=== PATIENT | male | born 1990 | race Caucasian/White ===

== ENCOUNTER 2018-11-13 19:58 | Outpatient (REF) | payer MEDICARE, MEDICAID, SELFPAY ==
[2018-11-13 22:41] LABS: Abs Immature Grans 0.01 k/cumm (0.0-0.09); Absolute Basophil Count 0.02 k/cumm (0.0-0.2); Absolute Eosinophil Count 0.41 k/cumm (0.0-0.7); Absolute Lymphocyte Count 1.53 k/cumm (1.2-3.4); Absolute Monocyte Count 0.44 k/cumm (0.11-0.7); Absolute Neutrophil Count 2.87 k/cumm (1.2-6.7); Basophils % 0.4; Eosinophils % 7.8; HCT 41.8 % (40.0-50.0); HGB 14.5 g/dL (13.5-17.5); Immature Grans % 0.2; Mean Corp. HGB Concentration 34.7 g/dL (32.0-36.0); Mean Corpuscular Hemoglobin 31.6 pg (27.0-33.0); Mean Corpuscular Volume 91.1 fL (80-95); Mean Platelet Volume 9.8 fL (8.0-11.0); Monocytes % 8.3; Neutrophils % 54.3; Platelet Count 193 x1000/uL (130-400); RBC 4.59 m/cumm (4.50-6.00); RBC Distribution Width 12.7 % (11.8-14.1); White Blood Cell Count 5.28 k/cumm (4.4-10.8)
[2018-11-13 23:05] LABS: Anion Gap 9.6 mmol/L (3-11); BUN 16 mg/dL (7-18); CO2 26.4 mmol/L (21.0-32.0); CREATININE 0.79 mg/dL (0.70-1.30); Calcium 9.3 mg/dL (8.5-10.1); Chloride 105 mmol/L (98-107); Glucose 91 mg/dL (70-100); Sodium 141 mmol/L (136-145); TSH (W/Ref FT4) 1.34 uIU/mL (0.358-3.74)
== END 2018-11-13 20:18 ==
LOC: NCHCN 19:58
PROVIDERS: PCP Family Medicine; Visit Provider Nurse Practitioner Family
DX: I49.9 Cardiac arrhythmia, unspecified (principal); R55 Syncope and collapse
CPT/HCPCS: 80048; 84443; 85025

== ENCOUNTER 2018-12-26 01:39 | Outpatient (CLI) | payer MEDICARE, MEDICAID, SELFPAY ==
--- NOTE | 2018-12-31 07:39 | HOLTER_ITS ---
HOLTER MONITOR DATE OF DICTATION December 30, 2018 48-hour study Baseline rhythm sinus. No supraventricular ectopy. Rare single PVC. No VT. Nocturnal heart rates as low as 25-30 BPM, sinus bradycardia. 1 pause is noted, 2.5 second duration 0349 hours, asymptomatic. SYMPTOMS No symptoms. Average heart rate 74 beats per minute. Hung Gatica M.D. GEORGE/evelyne T - 12/31/18
== END 2018-12-26 01:59 ==
PROVIDERS: PCP Family Medicine; Visit Provider Family Medicine
DX: R55 Syncope and collapse (principal); I49.3 Ventricular premature depolarization; R00.1 Bradycardia, unspecified
CPT/HCPCS: 93225

== ENCOUNTER 2018-12-30 12:00 | Outpatient (CLI) | payer MEDICARE, MEDICAID, SELFPAY | END 2018-12-30 12:20 | PROVIDERS: PCP Nurse Practitioner Family; Visit Provider Family Medicine | DX: R55 Syncope and collapse (principal); I49.3 Ventricular premature depolarization; R00.1 Bradycardia, unspecified | CPT/HCPCS: 93227; 93226 ==

== ENCOUNTER 2018-12-30 18:31 | Outpatient (CLI) | payer MEDICARE, MEDICAID, SELFPAY | END 2018-12-30 18:51 | PROVIDERS: PCP Nurse Practitioner Family; Referring Provider Family Medicine; Visit Provider Internal Medicine Interventional Cardiology | DX: R69 Illness, unspecified (principal) ==

== ENCOUNTER 2020-11-10 21:49 | Emergency (ER) | payer MEDICARE, MEDICAID, SELFPAY ==
[2020-11-10 21:53] VITALS: BP 135/82; PULSE 97; RESP 14; TEMP 36.7; O2SAT 99
--- NOTE | 2020-11-10 22:17 | ED.GENADUL_ITS ---
Discharge Plan Disposition Patient Disposition: HOME Condition: Improving Discharge Details Clinical Impression: Angioedema Primary Care Provider: Vincent Rutherford ED Provider: Paulina Oneil Home Meds and New Rx's Prescriptions: Continued acetaminophen [Tylenol] 325 MG tablet 650 mg PO Q6H PRN RF: 0 tramadol [Ultram] 50 MG tablet 50 mg PO Q6H PRN Qty: 12 RF: 0 ibuprofen 800 MG tablet 800 mg PO TID Qty: 30 RF: 1 Discharge Instructions Instructions: Angioedema (ED) Additional Instructions: Exam is most consistent with angioedema. As we discussed, this could be a reaction. Please take the steroids as prescribed. You are given a dose for this evening. The remaining prescription is at [facility] per your request. Please follow-up with your primary care this week for reevaluation. If you develop increased swelling, difficulty swallowing, difficulty breathing, rash or any other new/worsening symptoms please seek care urgently once again Referrals: Vincent Rutherford, [employer] [Primary Care Provider] - Discharge Data Discharge Date/Time-TO BE ENTERED AT DEPARTURE: 11/11/20 00:00 Medical Decision Making Patient is a 30-year-old male presented with chief complaint of lower lip swelling. He states that he awoke like this this morning. No change in the swelling throughout the course the day. No difficulty swallowing, dyspnea or other difficulty breathing. He denies any fevers or chills. Patient is not on any medications. Denies taking any xuxu-sex-[id number] medications. Denies any illicit drug use. No alcohol. States that he had pizza last night for dinner and was not anything unusual. No family history of angioedema. No dental pain. No rash. States that he was able to complete his day at work prior to arrival here. Has not taken anything for the swelling. On exam, patient is resting comfortably, he appears nontoxic. He does appear slightly anxious. He has notable swelling to the lower lip with associated skin irritation appears to be primarily cracks in the skin. No surrounding erythema, warmth, drainage. No swelling under the tongue. No lymphadenopathy. No trismus. Handling secretions well, no stridor or wheezing. Uvula is midline, no tonsillar swelling. Patient does have acute dental caries but no evidence to suggest an acute infection. His exam is most consistent with angioedema. He does not appear to having any evidence of anaphylaxis. No evidence of to suggest an infection or abscess. We will treat the patient with steroids and antihistamine. Discussed plan is in agreement. Patient was reassessed multiple times. He reports that the swelling has been going down. He continues to show no evidence of respiratory involvement or progression of symptoms. Patient feels that he is ready for discharge at this time and I do agree with assessment. Been kept here over an hour since the receiving steroids. Is been over 12 hours since onset of symptoms initially. Patient will continue on steroids. Advised antihistamines to help with symptomatic management. Return precautions were discussed. I encourage close follow-up with primary care. All of his questions concerns were addressed and he is in agreement with this plan. HPI General Mode of arrival: ambulatory . Date/Time Provider Initiated Documentation: 11/10/20 22:08 . Limitations to Documentation: no limitations . Information obtained by: patient and RN notes reviewed . History of Present Illness 30 year old M presents to the emergency department with the chief complaint of swelling lower lip, described as moderate, with intensity rated at 5. Quality is described as aching, and is localized to the mouth. Patient reports no radiation. Patient started experiencing this hour(s) (noted when he woke up this morning) and it has been constant. No relieving factors improve symptom(s), No exacerbating factors reported . Patient notes no other symptoms.. Patient did receive the following treatments prior to arrival, none Related Data Home Medications Medication Instructions Recorded Confirmed acetaminophen [Tylenol] 650 mg PO Q6H PRN tab-cap 10/16/17 11/10/20 tramadol [Ultram] 50 mg PO Q6H PRN #12 tab-cap 11/20/17 11/10/20 ibuprofen 800 mg PO TID #30 tab-cap 12/04/17 11/10/20 Previous Rx's Medication Instructions Recorded tramadol [Ultram] 50 mg PO Q6H PRN #12 tab-cap 11/20/17 ibuprofen 800 mg PO TID #30 tab-cap 12/04/17 Allergies Allergy/AdvReac Type Severity Reaction Status Date / Time erythromycin ethylsuccinate Allergy Unverified 11/10/20 21:57 [From Pediazole] sulfisoxazole acetyl Allergy Unverified 11/10/20 21:57 [From Pediazole] General Stated Complaint: Allergic KATHERINE: 3 Review of Systems Constitutional Constitutional: Reports as per HPI, Denies chills, Denies fatigue, Denies fever(s), Denies headache(s), Denies poor appetite and Denies weakness Eyes Eyes: Reports as per HPI, Denies eye discharge and Denies irritation ENT Ears, Nose, Mouth, and Throat: Reports as per HPI, Denies headache(s), Denies hoarseness, Reports lip swelling, Denies mouth lesions, Denies mouth pain, Denies odynophagia, Denies sore throat, Denies throat swelling and Denies tongue swelling Cardiovascular Cardiovascular: Reports as per HPI, Denies chest pain and Denies dyspnea Respiratory Respiratory: Reports as per HPI, Denies dyspnea, Denies stridor and Denies wheezing Gastrointestinal Gastrointestinal: Reports as per HPI, Denies abdominal pain, Denies change in bowel habits, Denies nausea, Denies odynophagia and Denies vomiting Integumentary/Breasts Skin/Breast: Reports as per HPI and Denies rash Neurologic Neurologic: Reports as per HPI, Denies headache(s) and Denies weakness Endocrine Endocrine: Denies fatigue Allergic/Immunologic Allergic/Immunologic: Reports lip swelling, Denies throat swelling, Denies tongue swelling and Denies wheezing PFSH Social History Smoking/Tobacco Use Status: Former Tobacco Use Smoking risk assessment performed?: Yes Alcohol Intake: former Substance use type: does not use Do you feel safe at home: Yes Do you feel safe in your relationship?: Yes Exam Const General: cooperative, healthy appearing, comfortable, no acute distress, well developed and well groomed Nutritional Appearance: average body habitus and well nourished Orientation: alert and awake [facility] Head: normal to inspection, normocephalic and atraumatic Ears: hearing grossly normal bilaterally, external ears normal and TM's normal bilaterally General nose exam: external nose normal and nares normal Face and sinus: normal facial exam, sinuses nontender and face symmetric Mouth: oral mucosae normal, tongue normal, oropharynx normal, moist mucous membranes and lip abnormal (swelling to lower lip) Teeth and gingiva: dentition normal Throat: posterior oropharynx normal, tonsils normal and uvula midline Eyes General: appearance normal, both eyes and all related structures Neck Neck: normal visual inspection, full ROM, no lymphadenopathy and no meningeal signs Resp Effort & Inspection: normal respiratory effort, able to speak in complete se ntences and no respiratory distress Auscultation: clear to auscultation bilaterally, no rales, no rhonchi and no wheezes Cardio Rate: regular rate Rhythm: regular rhythm Heart Sounds: S1 normal and S2 normal Skin General skin exam: no rashes or lesions noted Neuro General: patient alert and patient awake Cognition: normal cognition Speech: speech normal Gait: normal gait Psych Appearance: grossly normal and well kempt Mental Status: mental status grossly normal Speech and Movement: speech and movement normal Course Vital Signs Vital signs: Vital Signs Temperature 36.7 C 11/10/20 21:53 Pulse 97 H 11/10/20 21:53 Respiratory Rate 14 11/10/20 21:53 Blood Pressure 135/82 11/10/20 21:53 Pulse Oximetry 99 11/10/20 21:53 Temperature 36.7 C 11/10/20 21:53 Temperature Source Skin 11/10/20 21:53 Pulse 97 H 11/10/20 21:53 Respiratory Rate 14 11/10/20 21:53 Respiratory Effort Non-Labored 11/10/20 21:58 Respiratory Pattern Normal 11/10/20 21:58 Blood Pressure 135/82 11/10/20 21:53 Blood Pressure Position Sitting 11/10/20 21:53 Pulse Oximetry 99 11/10/20 21:53 Oxygen Delivery Method Room Air 11/10/20 21:53 Oxygen Flow Rate 0 11/10/20 21:53 Pain Level 5 11/10/20 21:53
[2020-11-10] MEDS: diphenhydrAMINE 50 MG/ML VIAL 25 MG IVP (22:36)
[2020-11-10] MEDS: Dexamethasone 10 MG/ML VIAL IVP (22:36)
[2020-11-10 22:59] VITALS: BP 133/77; PULSE 76; RESP 16; O2SAT 99
[2020-11-10 23:47] VITALS: BP 133/72; PULSE 84; RESP 18; O2SAT 97
== END 2020-11-11 | disposition home or self-care (01) ==
PROVIDERS: Emergency Provider Physician Assistant; PCP Nurse Practitioner Family
DX: T78.3XXA Angioneurotic edema, initial encounter (principal); R06.02 Shortness of breath
CPT/HCPCS: 96374; 96375; 99284; J1100; J1200

== ENCOUNTER 2021-10-08 16:41 | Outpatient (REF) | payer MEDICARE, MEDICAID, SELFPAY ==
[2021-10-10 16:20] LABS: COVID-19 RT-PCR UVMMC Result Positive (Negative)
== END 2021-10-08 16:42 | disposition home or self-care (01) ==
LOC: LBN 16:41
PROVIDERS: PCP Nurse Practitioner Family; Visit Provider Physician Assistant Medical
DX: Z20.822 Contact with and (suspected) exposure to COVID-19 (principal); J32.9 Chronic sinusitis, unspecified
CPT/HCPCS: U0003

== ENCOUNTER 2022-02-13 15:19 | Outpatient (REF) | payer MEDICARE, MEDICAID, SELFPAY ==
[2022-02-15 12:05] LABS: HIV-1/2 Ag & Ab Screen Negative (Negative)
== END 2022-02-13 15:20 | disposition home or self-care (01) ==
LOC: NCHCN 15:19
PROVIDERS: PCP Nurse Practitioner Family; Visit Provider Family Medicine
DX: Z11.4 Encounter for screening for human immunodeficiency virus [HIV] (principal); Z00.00 Encounter for general adult medical examination without abnormal findings
CPT/HCPCS: 87389

== ENCOUNTER 2022-03-03 02:38 | Outpatient (CLI) | payer MEDICARE, MEDICAID, SELFPAY ==
--- OUTSIDE RECORDS SUMMARY | 2022-03-03 02:39 | XMS_ITS | Encounter Summary ---
:1990 Demographics Home Phone Preferred Language Unknown Marital Status Unknown Muslim Affiliation Unknown Race Unknown Ethnic Group Unknown Author Organization [facility] Address [address] [place] [address] Care Team Providers Name Role Phone Unavailable Primary Care Provider Unavailable Encounter Details Date Type Department Care Team Description 02/14/2022 Lab Requisition [facility] Outr Resulting Lab, Pathology & Laboratory Provider [facility] [address] [place] [address] Social History Tobacco Use Types Packs/Day Years Used Date Never Assessed Sex Assigned at Date Recorded Not on file documented as of this encounter Plan of Treatment Not on filedocumented as of this encounter Procedures Procedure Name Priority Date/Time Associated Comments Diagnosis HIV 1/2 ANTIGEN AND Routine 02/13/2022 14:50 Resu lts for this ANTIBODY, 4TH EDT procedure are in GENERATION the results section. documented in this encounter Results HIV 1/2 ANTIGEN AND ANTIBODY, 4TH GENERATION (02/13/2022 14:50 EDT) HIV 1 and 2 NegativeComment: If Negative [facility] Antibody/p24 acute HIV-1 LABORATORY Antigen, 4th infection is SERVICES Generation suspected in a high risk patient, submit plasma specimen for HIV-1 RNA quantitation test. Specimen Blood - Venous blood (substance) Narrative [facility] LABORATORY SERVICES - 02/15/2022 12:00 EDT Fourth Generation assay performed on the Siemens Centaur XPT. Performing Organization Address City/State/ZIP Code Phon e Number [facility] [address] [place] [address] SERVICES documented in this encounter Visit Diagnoses Not on filedocumented in this encounter
--- OUTSIDE RECORDS SUMMARY | 2022-03-03 02:40 | XMS_ITS | Encounter Summary ---
:1990 Demographics Home Phone Preferred Language Unknown Marital Status Unknown Episcopalian Affiliation Unknown Race Unknown Ethnic Group Unknown Author Organization [facility] Address [address] [place] [address] Care Team Providers Name Role Phone Unavailable Primary Care Provider Unavailable Encounter Details Date Type Department Care Team Description 10/09/[address] [facility] Outr Resulting Lab, Pathology & Laboratory Provider [facility] [address] [place] [address] Social History Tobacco Use Types Packs/Day Years Used Date Never Assessed Sex Assigned at Date Recorded Not on file documented as of this encounter Plan of Treatment Not on filedocumented as of this encounter Procedures Procedure Name Priority Date/Time Associated Diagnosis Comme nts COVID-19 TEST [facility] Today 10/08/2021 10:10 LAB PCR EST COVID-19 TESTING Routine 10/08/2021 10:10 Results for this EST procedure are i n the results section. documented in this encounter Results COVID-19 TEST [facility] LAB PCR (10/08/2021 10:10 EST) Specimen Swab Performing Organization Address City/State/ZIP Code Phon e Number [facility] [address] [place] [address] SERVICES (ABNORMAL) COVID-19 TESTING (10/08/2021 10:10 EST) COVID-19 rt-PCR Positive (AA) Negative [facility] Result Comment: LABORATORY This test has not been FDA c leared or approved. This test has been authorized by FDA under an EUA for use by authorized laboratories. This test has been authorized only for detection of nucleic acid fro SERVICES m 2019-nCoV, not for any oth er viruses or pathogens. This test is only authorized for the duration of the declaration that circumstances exist justifying the authorization of emergency use of in vitro d iagnostic tests for detectio n and/or diagnosis of 2019-nCoV under section 564(b)(1) of Act, 21 U.S.C ?? 360bbb-3(b) (1), unless the authorization is terminated or revoked sooner. Testing was performed using the dari SARS-CoV-2 assay ([employer] on the Dari 6800 System Performing Lab Dari [address] [facility] Lab [facility] SERVICES Specimen Swab Performing Organization Address City/State/ZIP Code Phon e Number [facility] [address] [place] [address] SERVICES documented in this encounter Visit Diagnoses Not on filedocumented in this encounter Additional Health Concerns Infection Onset Date Last Indicated Resolved Time COVID-19 10/08/2021 10/08/2021 10/28/2021 22:15 EST documented as of this encounter
[2022-03-03] MEDS: Albuterol HFA 18 GM 200 PUFF INH IH (15:42)
[2022-03-03] MEDS: Inhaler, Assist Device 1 EACH MC (15:43)
--- NOTE | 2022-03-03 17:16 | W.PFT ---
Date of service: 03/03/22 Time of Service: 15:07 Pulmonary Function Test Result Requesting Provider Pacheco Montiel Indications: GARCIA Interpretation Spirometry: There is mild airflow limitation. There is no significant bronchodilator response. The appearance of the flow volume loop is consistent with a fixed obstruction. Lung Volumes: There is evidence of air trapping Diffusion Capacity: Uncorrected diffusion is slightly decreased Airway Pressure: Normal airways resistance Impression There is mild airflow limitation with a slightly reduced diffusion which could be consistent with COPD with emphysema. There is a clear fixed airflow obstruction seen on flow volume loop. Causes of this include: tracheal stenosis, goiter, endotracheal/endobronchial neoplasms, bronchial stenosis, relapsing polychondritis, etc. Patient would likely benefit from a chest CT for further evaluation of this. Clinical Correlation therefore is recommended.
== END 2022-03-03 02:39 | disposition home or self-care (01) ==
LOC: RT 02:38
PROVIDERS: PCP Nurse Practitioner Family; Visit Provider Family Medicine
DX: R94.2 Abnormal results of pulmonary function studies (principal); R06.09 Other forms of dyspnea; R06.2 Wheezing; R05.8 Other specified cough; Z87.891 Personal history of nicotine dependence
CPT/HCPCS: 94060; 94726; 94729

== ENCOUNTER 2025-08-30 08:59 | Emergency (ER) | payer MEDICARE, MEDICAID, SELFPAY ==
[2025-08-30 09:09] VITALS: BP 126/81; PULSE 67; RESP 16; TEMP 36.6; O2SAT 97
[2025-08-30 09:10] VITALS: BP 126/81; PULSE 67; RESP 16; TEMP 36.6; O2SAT 97
--- NOTE | 2025-08-30 10:01 | ED.GENADUL_ITS ---
Discharge Plan Disposition Patient Disposition: Home Discharge Details Clinical Impression: Dental caries Primary Care Provider: Unknown,Unknown ED Provider: Pacheco Lamas Home Meds and New Rx's Prescriptions: New amoxicillin-pot clavulanate 875-125 mg tablet 1 tab PO BID 10 Days Qty: 20 0RF Continued acetaminophen [Tylenol] 325 MG tablet 650 mg PO Q6H PRN ibuprofen 800 MG tablet 800 mg PO TID Qty: 30 1RF Discharge Instructions Additional Instructions: You were seen emerged part for your dental pain. You likely have an infection in your tooth. Please take these antibiotics as directed. Please follow-up with a dentist next week. Please return to emergency department if you develop any swelling in your face difficulty swallowing or fevers. For your pain please take medications as follows: 1. Take acetaminophen (Tylenol), 1,000 mg (two 500 mg tabs) every 6 hours [2. Take ibuprofen (Advil), 400 mg every 6 hours.] Stand Alone Forms: Portal Information HPI General Date/Time Provider Initiated Documentation: 08/30/25 09:59 . HPI Narrative: MDM This is an overall well-appearing normothermic and not tachycardic 34-year-old male with significant dental caries and percussive tenderness concerning for infective caries for which patient received amoxicillin clavulanic acid for 10 days with list of outpatient dental providers to call. No brawny edema submentally to suggest Wander's angina. Uvula midline making her suspicion lower for peritonsillar abscess. Good range of motion in neck so doubt retropharyngeal abscess. Handling secretions so doubt epiglottitis. Nontoxic making my suspicion lower for bacterial tracheitis. I advised patient to return to the ED if he developed any significant difficulty breathing fevers facial swelling or if he had any other concerns. He was discharged with empiric trial of expectant outpatient management. I counseled patient on acetaminophen and ibuprofen dosing. HPI The patient presents for evaluation of right upper tooth pain. He has been experiencing severe pain in his right upper tooth for the past 2 days, which he describes as excruciating. The onset of the pain was sudden, occurring while he was eating. He has been managing the pain with intermittent use of ibuprofen and Orajel, including a dose this morning. He reports no recent dental visits and is uncertain about his current dental insurance status. He also reports no fever, difficulty swallowing, or shortness of breath. Exam General: Well-appearing in no acute distress speaking in complete sentences. Head: Normocephalic, atraumatic. Eye: Extraocular eye movements intact. No conjunctival injection. No scleral icterus. Ear, nose, mouth, throat: Tooth #1 with diffuse caries percussive tenderness. Uvula midline. No facial swelling. No brawny edema submentally. Handling secretions. Neck: Trachea midline. Cardiovascular: Well-perfused distal extremities. Respiratory: Nonlabored respiration. Gastrointestinal: Nondistended abdomen. Musculoskeletal: No edema. Moving all 4 extremities spontaneously. Skin: Normal for age and race, grossly normal temperature and turgor. No acute rash. Neurologic: Alert and appropriate, no apparent acute deficits. Psychiatric: Mood and manner are appropriate. Grooming and personal hygiene are appropriate. Related Data Home Medications ?Medication ?Instructions ?Recorded ?Confirmed acetaminophen 325 mg tablet 650 mg PO Q6H PRN 10/16/17 08/30/25 (Tylenol) ibuprofen 800 mg tablet 800 mg PO TID #30 tab-caps 0 12/04/17 08/30/25 amoxicillin 875 mg-potassium 1 tab PO BID 10 days #20 tabs 08/30/25 clavulanate 125 mg tablet Previous Rx's ?Medication ?Instructions ?Recorded ibuprofen 800 mg tablet 800 mg PO TID #30 tab-caps 0 12/04/17 amoxicillin 875 mg-potassium 1 tab PO BID 10 days #20 tabs 08/30/25 clavulanate 125 mg tablet Allergies Allergy/AdvReac Type Severity Reaction Status Date / Time erythromycin ethylsuccinate Allergy Mild Skin Rash Unverified 08/30/25 10:10 (From Pediazole) sulfisoxazole acetyl (From Allergy Other (See Unverified 08/30/25 10:10 Pediazole) Comment) General Stated Complaint: DentalOral KATHERINE: 4 Course Vital Signs Vital signs: Vital Signs Temperature 36.6 C 08/30/25 09:09 Pulse 67 08/30/25 09:09 Respiratory Rate 16 08/30/25 09:09 Blood Pressure 126/81 08/30/25 09:09 Pulse Oximetry 97 08/30/25 09:09 Temperature 36.6 C 08/30/25 09:10 Pulse 67 08/30/25 09:10 Respiratory Rate 16 08/30/25 09:10 Blood Pressure 126/81 08/30/25 09:10 Pulse Oximetry 97 08/30/25 09:10 PFSH All Active Problems (Updated 08/30/25 @ 10:08 by Pacheco Lamas MD) Dental caries (Acute) Angioedema (Acute) Social History Smoking/Tobacco Use Status: Former Tobacco Use Smoking risk assessment performed?: Yes Alcohol Intake: former Drug use: Occasionally Substance use type: marijuana Do you feel safe at home: Yes Do you feel safe in your relationship?: Yes
== END 2025-08-30 10:29 | disposition home or self-care (01) ==
PROVIDERS: Emergency Provider Emergency Medicine
DX: R68.84 Jaw pain (principal); K04.7 Periapical abscess without sinus
CPT/HCPCS: 99283 ×2